=== PATIENT | female | born 1955 | race Asian ===

== ENCOUNTER 2018-05-19 04:45 | Emergency (ER) | payer OTHER ==
[~2018-05-19] VITALS: Ht 157.5 cm; Wt 61.2 kg
[2018-05-19 04:53] VITALS: Ht 157.5 cm; Wt 61.2 kg
[2018-05-19 06:35] LABS: BASOPHIL % 0.2 % (0-2); PLATELET COUNT 289 x10^3mcL (130-400); RED CELL DISTRIBUTION WIDTH 12.5 % (11.5-14.5)
[2018-05-19 06:46] LABS: CALCIUM 8.6 mg/dL (8.5-10.1); CHLORIDE SERUM 104 mmol/L (98-107); CREATININE SERUM 0.7 mg/dL (0.6-1.0); GFR1 > 60 mL/min; GLUCOSE SERUM 94 mg/dL (74-106); POTASSIUM SERUM 3.9 mmol/L (3.5-5.1); SODIUM SERUM 141 mmol/L (136-145)
[2018-05-19 06:50] LABS: ALBUMIN 3.4 g/dL (3.4-5.0); ALKALINE PHOSPHATASE 68 U/L (46-116); ALT/SGPT 22 U/L (14-59); AST/SGOT 13 U/L (15-37); CHOLESTEROL 260 mg/dL (<200); HDL CHOLESTEROL 71 mg/dL (40-60); TOTAL PROTEIN, SERUM 7.2 g/dL (6.4-8.2)
[2018-05-19 08:41] VITALS: BP 138/71
== END 2018-05-19 08:41 | disposition home or self-care (01) ==
LOC: ED 04:45
PROVIDERS: Emergency Medicine
DX: R55 Syncope and collapse (principal); R42 Dizziness and giddiness; R11.0 Nausea; H93.13 Tinnitus, bilateral; H91.90 Unspecified hearing loss, unspecified ear
CPT/HCPCS: 36415; J8597; Q0092